=== PATIENT | male | born 1985 | race Caucasian/White ===

== ENCOUNTER 2019-07-15 20:16 | Emergency (ER) | payer OTHER ==
[2019-07-15] MEDS ORDERED: HYDROmorphone 1 MG/ML CARPUJECT IM STA (20:55)
[2019-07-15] MEDS ORDERED: LORazepam 2 MG/ML VIAL IM STA (20:56)
[2019-07-15] MEDS ORDERED: CIPROFLOXACIN 250 MG TABLET PO STA (20:56)
[2019-07-15] MEDS ORDERED: BUFFERED LIDOCAINE 10 ML SYRINGE SUBQ STA (20:56)
[2019-07-15] MEDS ORDERED: metroNIDAZOLE 250 MG TABLET PO STA (20:56)
--- NOTE | 2019-07-15 21:00 | ED Physician Documentation ---
PD HPI WOUND RECHECK - Stated complaint Stated Complaint: MALE /TAILBONE/NAUSEA - Chief complaint Chief Complaint: Wound - Histroy obtained from History obtained from: Patient (This is a gentleman who has a history of pilonidal cyst, he had an OR excision 5 years ago but over the last few days has developed pain and swelling in the same area of his prior pilonidal cyst. No fevers.) Review of Systems Constitutional: reports: Reviewed and negative Throat: reports: Reviewed and negative Cardiac: reports: Reviewed and negative Respiratory: reports: Reviewed and negative PD PAST MEDICAL HISTORY - Past Medical History Past Medical History: Yes Cardiovascular: None Respiratory: None Neuro: None Endocrine/Autoimmune: None GI: None : None HEENT: None Psych: ADD/ADHD Musculoskeletal: None Derm: None - Past Surgical History Past Surgical History: Yes General: Other - Present Medications Home Medications: Ambulatory Orders Medication Instructions Recorded Confirmed Ciprofloxacin HCl [Cipro] 500 mg PO BID #20 tablet 07/15/19 Dextroamphetamine/Amphetamine 5 mg PO 07/15/19 [Dextroamp-Amphet ER 5 mg Cap] Metronidazole [Flagyl] 500 mg PO TID #30 tablet 07/15/19 Oxycodone HCl/Acetaminophen 1 - 2 each PO Q6H PRN #14 tablet 07/15/19 [Percocet 5-325 mg Tablet] - Allergies Allergies/Adverse Reactions: Allergies Allergy/AdvReac Type Severity Reaction Status Date / Time Penicillins AdvReac Hives Verified 07/15/19 20:28 - Social History Does the pt smoke?: No Smoking Status: Never smoker Does the pt drink ETOH?: Yes Does the pt have substance abuse?: No - Immunizations Immunizations are current?: Yes - POLST Patient has POLST: No PD ED PE NORMAL - Vitals Vital signs reviewed: Yes - General General: Alert and oriented X 3, No acute distress - HEENT HEENT: PERRL, EOMI - Derm Derm: Other (Pointed left-sided superior gluteal pilonidal cyst which is under a previous surgical incision) - Neuro Neuro: Alert and oriented X 3, Normal speech Results - Vitals Vitals: Vital Signs - 24 hr 07/15/19 20:23 Temperature 36.8 C Heart Rate 93 Respiratory 18 Rate Blood Pressure 143/72 H O2 Saturation 96 Oxygen O2 Source Room air Procedures - Abscess I&D (location) pilonidal Preparation: Alcohol, Lidocaine 1%, Other (anxiolysis with dilaudid/ativan IM) Incision: Incised with scalpel, Purulent drainage, Loculations broken, Packed (with 1/4 inch packing) Other: Pt tolerated well, Dressing applied, Antibiotic prescribed Departure - Departure Disposition: 01 Home, Self Care Clinical Impression: Pilonidal cyst with abscess Condition: Good Record reviewed to determine appropriate education?: Yes Instructions: ED Cyst Pilonidal Infected IandD Prescriptions: Ciprofloxacin HCl [Cipro] 500 mg PO BID #20 tablet Metronidazole [Flagyl] 500 mg PO TID #30 tablet Oxycodone HCl/Acetaminophen [Percocet 5-325 mg Tablet] 1 - 2 each PO Q6H PRN #14 tablet PRN Reason: pain Comments: Remove the packing in 2 days, followup with a surgeon on return home. Return if worse. Do not drink or drive while taking narcotic pain medication. Note that many narcotic pain relievers also contain Tylenol/acetaminophen. Please ensure that your total dose of acetaminophen from all sources does not exceed 3 g (3000 mg) per day. You may get constipated while on this medication. Take a stool softener such as Colace twice a day while you are on it. Also add an [id number] laxative such as senna or MiraLAX on any day that you do not have a bowel movement. If you received a narcotic pain medication or sedative while in the emergency department, do not drive for the next 24 hours.
[2019-07-15] MEDS ORDERED: oxyCODONE/ACET 5/325 Prepack 4 PO STA (21:45)
[2019-07-15 21:56] VITALS: BP 135/82
== END 2019-07-15 21:59 | disposition home or self-care (01) ==
LOC: ED 20:16
DX: L05.01 Pilonidal cyst with abscess (principal)
CPT/HCPCS: 10080; 96372; 99283; A9270; J1170; J2060